=== PATIENT | female | born 1970 ===

== ENCOUNTER 2023-02-17 04:44 | Day surgery (SDC) | payer OTHER ==
[2023-01-29 16:07] VITALS: BMI 22.3
[~2023-02-17 04:44] MED LIST: LIDOCAINE HCL 1%, 10 MG/ML (20ML VIAL) INF ONE; ceFAZolin SODIUM 1 GM VIAL IVPB ONE
[2023-02-17] MEDS ORDERED: METHYLENE BLUE 50 MG/10 ML AMPUL ONE (07:06)
[2023-02-17] MEDS ORDERED: LIDOCAINE HCL 1%, 10 MG/ML (20ML VIAL) ONE (07:06)
[2023-02-17] MEDS ORDERED: MIDAZOLAM HCL 2 MG/2 ML SINGLE DOSE VIAL ONE (08:33)
[2023-02-17] MEDS ORDERED: FENTANYL CITRATE/PF 50 MCG/ML VIAL ONE ×4 (08:33→13:36)
[2023-02-17] MEDS ORDERED: LIDOCAINE HCL/PF 2% SDV 5ML VIAL ONE ×2 (08:33→10:34)
[2023-02-17] MEDS ORDERED: PROPOFOL 40 ML ONE (08:33)
[2023-02-17] MEDS ORDERED: ONDANSETRON 4 MG/2 ML VIAL ONE (08:37)
[2023-02-17] MEDS ORDERED: DEXAMETHASONE SOD PHOSPHATE 4 MG/1 ML VIAL ONE ×2 (08:37→10:34)
[2023-02-17] MEDS ORDERED: HYDROmorphone HCl 2 MG/ML VIAL ONE (10:24)
[2023-02-17] MEDS ORDERED: ceFAZolin SODIUM 1 GM VIAL ONE (10:34)
[2023-02-17] MEDS ORDERED: ceFAZolin SODIUM 1 GM VIAL IVPB ONE (10:40)
[2023-02-17] MEDS ORDERED: PROPOFOL 20 ML ONE ×2 (11:33→12:24)
[2023-02-17] MEDS ORDERED: ACETAMINOPHEN INJECTION 100 ML IVPB ONE (12:20)
[2023-02-17] MEDS ORDERED: NEOSTIGMINE METHYLSULFATE 0.5 MG/1 ML - 10 ML MDV ONE (12:27)
[2023-02-17] MEDS ORDERED: GLYCOPYRROLATE 0.2 MG/1 ML VIAL ONE (12:28)
[2023-02-17] MEDS ORDERED: oxyCODONE HCL 5 MG TABLET PO PRN ×2 (12:49)
[2023-02-17] MEDS ORDERED: ACETAMINOPHEN 500 MG TABLET (FP) PO PRN (12:54)
[2023-02-17] MEDS ORDERED: ONDANSETRON 4 MG/2 ML VIAL IVPB PRN (12:54)
[2023-02-17] MEDS ORDERED: LACTATED RINGERS SOLUTION 1,000 ML/1,000 ML INFUS.BAG IV SCH (13:00)
[2023-02-17] MEDS: LACTATED RINGERS SOLUTION 1,000 ML IV SCH ×2 (16:05→18:17)
[2023-02-17] MEDS ORDERED: CEFAZOLIN 1 GM in DEXTROSE 5%-WATER - 50 ML IVPB SCH (18:00)
[2023-02-17] MEDS: CEFAZOLIN 1 GM in DEXTROSE 5%-WATER - 50 ML IVPB SCH (19:06)
[2023-02-18] MEDS: CEFAZOLIN 1 GM in DEXTROSE 5%-WATER - 50 ML IVPB SCH ×2 (03:07→10:12)
[2023-02-18] MEDS: LACTATED RINGERS SOLUTION 1,000 ML IV SCH (06:28)
[2023-02-18 11:55] VITALS: BP 122/76; PULSE 65; RESP 20; TEMP 98.7
== END 2023-02-18 13:41 | disposition home or self-care (01) ==
LOC: JASUSAT 04:44 → JASU-SURG 04:44 → J8W 16:22 → JASUSAT 02-18 13:41
PROVIDERS: ATTEND Surgery
PROC: 0HTV0ZZ Resection of Bilateral Breast, Open Approach (ICD-10-PCS; principal; 2023-02-17 08:00)
DX: C50.912 Malignant neoplasm of unspecified site of left female breast (principal)
CPT/HCPCS: 78195-TC; 88307-TC; 94760; A9541; Q9968